=== PATIENT | female | born 1975 | race Caucasian/White ===

== ENCOUNTER 2017-01-13 11:57 | Emergency (ER) | payer SELFPAY ==
[~2017-01-13] VITALS: Ht 162.6 cm; Wt 120.0 kg
[~2017-01-13 11:57] MED LIST: NO KNOWN MEDICATIONS
[2017-01-13 12:00] VITALS: TEMP 98.1; Ht 162.6 cm; Wt 120.0 kg
--- OUTSIDE RECORDS SUMMARY | 2017-01-13 12:01 | XMS REPORT | Continuity of Care Document ---
Author Author [facility] Organization [facility] Address Unknown Phone Unavailable Support Name Relationship Address Phone ISAMAR DANIELA M HORSE EXERCISER Caregiver [address] [place] [address] Unavailable ENZO SCOTT APRN Caregiver [address] [place] [address] Unavailable DARLYN POSADA [place] [address] Insurance Providers Guarantor Kari Chris Address [address] [phone] Email DENIED NO TO PT PORT Payer Self Pay Subscriber's Name Kari Chris Relationship 20 Self Chief Complaint and Reason for Visit Chief Complaint Skin Rash/Abscess/Injury Reason for Visit Angioedema of lips Hypertension Problems Past Problems Medical Problem Onset Date Angioedema of lips Unknown Hypertension Unknown Medications Current Home Medications Medication Dose Units Route Directions Days Qty Instructions Start Date Miscellaneous Information (No Known Medications) [facility]ations Medication Directions Ordered Status Atenolol , Daily 09/01/10 Discontinued Dayquil , Oral As Needed 09/01/10 Discontinued Dm/P-Ephed/Acetaminoph/Doxylam (Nyquil D Cold & Flu Liquid) 295 Ml Liquid, 295 Ml Oral As Needed 09/01/10 Discontinued None , 01/06/09 Discontinued Social History No social history. Hospital Discharge Instructions No hospital discharge instructions. Plan of Care Discharge Date 01/13/17 11:47am Disposition 02 TO [facility] Condition at Discharge Stable Prescriptions See Medication Section Referrals ENZO SCOTT APRN Address: [address] [place] [phone] Additional Instructions/Education Continue [facility] emergency department now Functional Status No functional status results. Allergies, Adverse Reactions, Alerts Allergen Type Severity Reaction Status Last Updated No Known Drug Allergies Allergy Unknown Active 01/13/17 Immunizations Query Response on File Recorded Date/Time Hx Tetanus, Diptheria, Pertussis No 04/19/13 7:43pm Hx Tetanus Diptheria No 04/19/13 7:43pm Hx Tetanus, Diptheria, Pertussis No 04/19/13 7:43pm Hx Tetanus Toxoid Vaccination No 01/06/09 1:17am Vital Signs Acute Vital Signs Vital Response Date/Time Temperature (Fahrenheit) 97.7 deg F (96.8 - 99.1) 01/13/2017 11:34am Temperature (Calculated Celsius) 36.91341 degrees C (36.0 - 37.3) 01/13/2017 11:34am Pulse Rate (adult) 79 bpm (60 - 100) 01/13/2017 11:34am Respiratory Rate 20 breaths/min (10 - 20) 01/13/2017 11:34am O2 Sat by Pulse Oximetry 97 % (90 - 100) 01/13/2017 11:34am Blood Pressure 190/109 mm Hg 01/13/2017 11:34am Height (Inches) 62.00 inches 01/13/2017 11:34am Weight (Kilograms) 120.700 kg 01/13/2017 11:34am Body Mass Index (BMI) 48.0 01/13/2017 11:34am Results No known relevant diagnostic tests, laboratory data and/or discharge summary. Procedures No known history of procedures. Encounters Encounter Location Arrival/Admit Date Discharge/Depart Date Attending Provider Departed Emergency Room [facility] 01/13/17 10:50am 01/13/17 11: 47am DANIELA PENN APRN Recent Diagnosis
[2017-01-13] MEDS ORDERED: IBUP-1724 PO (12:26)
[2017-01-13] MEDS ORDERED: ATEN25TA PO (12:26)
--- NOTE | 2017-01-13 12:33 | ERPDOC ---
Departure Disposition Decision Date: Jan 13, 2017 Disposition Decision Time: 12:34 (RUKHSANA BELCHER APRN) Disposition: 01 DISCHARGED HOME, SELF-CARE Impression Impression (RUKHSANA BELCHER APRN) Impression: Primary Impression: Contact dermatitis Contact dermatitis type: allergic Contact dermatitis trigger: cosmetics Qualified Codes: L23.2 - Allergic contact dermatitis due to cosmetics Severity: Moderate (RUKHSANA BELCHER APRN) Condition: Stable Seen By: Mid-level only (RUKHSANA BELCHER APRN) Referrals: ENZO SCOTT APRN (Family) Patient Instructions: Contact Dermatitis (ED) Problems/Meds/Labs Reviewed?: Yes Medications reviewed and manag: Yes (RUKHSANA BELCHER APRN) Additional Instructions: Stop using the Blistex today. Use only plain Vaseline as needed for lip discomfort. Take Benadryl 25mg four times daily as needed for pain or itching and take the Prednisone as prescribed as well. Follow up with your primary care provider as needed if not improving. Follow up care ordered?: Yes Mental Status: Alert (RUKHSANA BELCHER APRN) Scripts Prednisone (Prednisone) 20 Mg Tablet 20 MG PO BIDWM, #6 TAB 0 Refills Take 1 tablet, by mouth, 2 times a day with meals. Prov: RUKHSANA BELCHER APRN 01/13/17 HPI - Skin General General Chief Complaint: Skin Rash/Abscess Stated Complaint: SWOLLEN LIPS/BURNING Time Seen by Provider: 12:22 Source: patient Exam Limitations: no limitations (RUKHSANA BELCHER APRN) Time Seen by Provider: 12:22 (NOREEN BOWDEN MD) HPI - Skin General Initial Comments She got a new chapstick down in [place] and started using it daily about a week ago. She applies several times a day. About 4 days ago her lips were really chapped and then today she woke up with painful and swollen lips. Has had some mild sore throat as well. Denies any fever or chills. Has never had this happen in the past. She has not taken anything for this today. Denies any other new soaps or detergents. Occurred At: home Onset: Gradual Duration: 1 week Severity: moderate Location: face (lips) Possible Cause: other (new Blistex) Associated Symptoms: sore throat, DENIES: blisters, change in skin texture, edema, fever, flushing, headache, hives, jaundice, malaise, nasal congestion, numbness, pallor, paresthesia, petechiae, rash, swelling/mass/lumps, tingling Hx of Similar Symptoms: No (NOLD,RUKHSANA N CMM OPERATOR) Allergies: Coded Allergies: No Known Drug Allergies (Verified Allergy, Unknown, 01/13/17) Past History Past Medical History Metabolic: hypertension ENMT: sore throats Neurological: headaches Psychological: anxiety (NOLD,RUKHSANA N CMM OPERATOR) Surgical History Reproductive/: (NOLD,RUKHSANA N CMM OPERATOR) Family History Family History: Negative (NOLD,RUKHSANA N CMM OPERATOR) Vaccines Hx Tetanus Diptheria: No Hx Tetanus, Diptheria, Pertuss: No (NOLD,RUKHSANA N CMM OPERATOR) Social History Smoking Status: Never smoker Substance Use Type: does not use Alcohol Intake: none (NOLD,RUKHSANA N CMM OPERATOR) Review of Systems Constitutional Constitutional: DENIES: chills, dizziness, fatigue, fever, weakness (NOLD, RUKHSANA N CMM OPERATOR) ENMT Ears: DENIES: drainage, pain Sinuses: DENIES: congestion, rhinorrhea Mouth/Throat: sore throat, DENIES: change in voice, drooling, hoarsness, painful swallowing, scratchy throat, sores Teeth: DENIES: pain (NOLD,RUKHSANA N CMM OPERATOR) Integumentary Skin: DENIES: rash (NOLD,RUKHSANA N CMM OPERATOR) Neurological General: DENIES: headache, numbness, tingling, weakness (NOLD,RUKHSANA N CMM OPERATOR) Physical Exam General General Nourishment: well nourished, well developed, appears stated age, no acute distress, adult General Body Habitus: well groomed (NOLD,RUKHSANA N CMM OPERATOR) Vitals and Pain First Documented Vital Signs Date Time Temp Pulse Resp B/P Pulse Ox O2 Delivery O2 Flow Rate FiO2 01/13/17 12:00 98.1 76 13 195/112 98 Room Air (NOREEN BOWDEN MD) Vitals and Pain Weight: Kilograms: Height (feet): Height (inches): 62.00 Triage Pain Scale: (NOLD,RUKHSANA N CMM OPERATOR) RN VS reviewed by Provider: Yes (RUKHSANA BELCHER APRN) Normal Exams: Eyes: Pupils are PERRLA w/ EOMI, No scleral icterus, irritation, or foreign bodies noted ENMT: No facial trauma, nasal exudates, pharyngeal erythema, or exudates are noted Neck: Full range of motion, without adenopathy, JVD, bruits or thyromegaly Chest/Resp: Clear all jones, with good airflow, and symmetry bilaterally Lymphatic: No lymphadenopathy, or lymphedema noted Integumentary: No rashes, hives, or bruising noted Neurologic: Patient is alert, and oriented Psychiatric: Patient exhibits, appropriate attention, emotion and affect (RUKHSANA BELCHER APRN) ENMT (brief) ENMT Brief: FOUND: other (Upper and lower lips are swollen with very slight erythema. No lesions or cracking noted. There is no swelling or erythema of the oropharynx or tongue. Mild TTP of the anterior cervical nodes but without lymph nodes swelling.) (RUKHSANA BELCHER APRN) Differential Diagnoses Considering: Other (Allergic reaction, oral herpes simplex, contact dermatitis) (RUKHSANA BELCHER APRN) Progress Progress Progress I did advise that she get rid of the new chapstick today. Will have her only use Vaseline as needed. Benadryl as needed for the swelling and will also have her try a low dose of Prednisone. Follow up with her PCP if she is not improving. (RUKHSANA BELCHER APRN) RUKHSANA BELCHER APRN Jan 13, 2017 12:33 NOREEN BOWDEN MD Jan 14, 2017 10:23
[2017-01-13] MEDS ORDERED: PRED20TA PO (12:35)
[2017-01-13 12:45] VITALS: BP 179/89; PULSE 75; RESP 18; O2SAT 96
== END 2017-01-13 12:45 | disposition home or self-care (01) ==
LOC: ED 11:57
DX: L23.2 Allergic contact dermatitis due to cosmetics (principal); T49.8X1A Poisoning by other topical agents, accidental (unintentional), initial encounter; Y92.009 Unspecified place in unspecified non-institutional (private) residence as the place of occurrence of the external cause